=== PATIENT | female | born 1965 | race Caucasian/White ===

== ENCOUNTER → 2017-07-31 | Outpatient (CLI) | payer BC | LOC: MAMMO 13:00 | DX: Z12.31 Encounter for screening mammogram for malignant neoplasm of breast (principal) | CPT/HCPCS: G0202 ==

== ENCOUNTER → 2020-01-19 | Outpatient (CLI) | payer BC | LOC: MAMMO 12-08 16:00 | DX: Z12.31 Encounter for screening mammogram for malignant neoplasm of breast (principal) ==

== ENCOUNTER → 2021-03-15 | Outpatient (CLI) | payer BC | LOC: MAMMO 15:05 | DX: Z12.31 Encounter for screening mammogram for malignant neoplasm of breast (principal) ==